=== PATIENT | female | born 1995 | race Caucasian/White ===

== ENCOUNTER → 2021-04-05 10:06 | Outpatient (BNVA) | payer OTHER, SELFPAY | PROVIDERS: Visit Provider Physician Assistant Medical | DX: S33.9XXA Sprain of unspecified parts of lumbar spine and pelvis, initial encounter (principal); S33.6XXA Sprain of sacroiliac joint, initial encounter; W01.0XXA Fall on same level from slipping, tripping and stumbling without subsequent striking against object, initial encounter | CPT/HCPCS: 99202 ==

== ENCOUNTER → 2021-04-09 13:14 | Outpatient (BNVA) | payer OTHER, SELFPAY | PROVIDERS: Visit Provider Physician Assistant Medical | DX: S33.9XXA Sprain of unspecified parts of lumbar spine and pelvis, initial encounter (principal); S33.6XXA Sprain of sacroiliac joint, initial encounter; X58.XXXA Exposure to other specified factors, initial encounter | CPT/HCPCS: 99213 ==

== ENCOUNTER 2021-11-08 06:52 | Emergency (ER) | payer OTHER, SELFPAY ==
--- NOTE | ~2021-11-08 | XR_ITS ---
EXAMINATION: LEFT ANKLE 2 VIEWS AND LEFT FOOT 3 VIEWS CLINICAL INFORMATION: Pain status post injury COMPARISON: None TECHNIQUE: As above nonweightbearing FINDINGS: Generalized mild soft tissue swelling about the ankle without evidence for any underlying fracture. Ankle mortise intact. Subtalar joint normal. No mid or forefoot abnormality. XR/XR ankle LT 2V IMPRESSION: No fracture.
--- NOTE | ~2021-11-08 | XR_ITS ---
EXAMINATION: LEFT ANKLE 2 VIEWS AND LEFT FOOT 3 VIEWS CLINICAL INFORMATION: Pain status post injury COMPARISON: None TECHNIQUE: As above nonweightbearing FINDINGS: Generalized mild soft tissue swelling about the ankle without evidence for any underlying fracture. Ankle mortise intact. Subtalar joint normal. No mid or forefoot abnormality. XR/XR foot LT 2V IMPRESSION: No fracture.
--- NOTE | 2021-11-08 07:05 | ED.FALL ---
HPI - Fall General Chief Complaint: Extremity Injury, Lower Stated Complaint: fell out of ambulance Time Seen by Provider: 11/08/21 07:01 Source: patient and EMS Mode of arrival: EMS Limitations: no limitations History of Present Illness HPI Narrative: 26-year-old female came in for evaluation of left foot/ankle injury. 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 Related Data Allergies Allergy/AdvReac Type Severity Reaction Status Date / Time erythromycin base Allergy Mild Hives Verified 11/08/21 07:03 Review of Systems Review of Systems: All other systems are reviewed and are negative Constitutional: Reports as per HPI and Reports no additional constitutional complaints Eyes: Reports as per HPI and Reports no additional eye complaints Reports system reviewed and no additional complaints, except as documented Cardiovascular: Reports as per HPI and Reports no additional cardiovascular complaints Respiratory: Reports as per HPI and Reports no additional respiratory complaints Gastrointestinal: Reports as per HPI and Reports no additional gastrointestinal complaints Genitourinary: Reports no additional female genitourinary complaints Musculoskeletal: Reports no additional musculoskeletal complaints Skin/Breast: Reports system reviewed and no additional complaints, except as docu Psychiatric: Reports no additional psychiatric complaints Endocrine: Reports no additional endocrine complaints Hematologic/Lymphatic: Reports no additional hematologic/lymphatic complaints Allergic/Immunologic: Reports no additional allergic/immunologic complaints Reports system reviewed and no additional complaints, except as documented and Reports Abnormal speech present [facility] Social History Social History Advance Directives: No Advance Directives Information Provided: No Physical Exam Vital Signs: Vital Signs: Last Vital Signs Pulse 97 11/08/21 07:26 Resp 20 11/08/21 07:26 BP 131/90 H 11/08/21 07:26 Pulse Ox 98 11/08/21 07:26 BMI result Body Mass Index 43.0 Vital signs have been reviewed as appeared to be correct. Blood pressure normal. Heart rate normal. Respiration rate normal. Temperature normal. Oxygen saturation normal. Appearance: Alert. Oriented X3. No acute distress. Head: Normal external exam. Normocephalic. Atraumatic. No [place] signs noted. No raccoon eyes noted Eyes: PERRLA. EOMI. Conjunctiva and sclera normal. Eyelids normal. ENT: TM's Normal. Pharynx normal. Uvula midline. Moist mucous membranes. No trismus noted. No drooling noted. No muffled voice noted. Neck: Normal inspection. Neck supple. FROM. No adenopathy. Thyroid Normal. No meningeal signs. No neck mass noted. CVS: Normal heart rate and rhythm. Heart sound normal. No murmurs noted. Pulses normal throughout. Respiratory: No respiratory distress. Painless inspiration. Breath sounds normal. No wheezes/rales/rhonchi noted. Chest nontender. No accessory muscle usage noted or decreased air movement noted. Abdomen: Soft and nontender. Bowel sounds normal in all 4 quadrants. No distention noted. No organomegaly noted. No visible injury noted. Back: No CVA tenderness. Full range of motion noted. Skin: Skin warm and dry. Normal skin color. Normal skin turgor. No rashes/lesions/lacerations noted. Extremities: Left ankle/foot exam: Mild tenderness and swelling over lateral malleolus, no deformity, normal cap refill in the left toes, intact PT/DP pulse. Neuro: Oriented X 3. Cranial nerve exam: II-XII are grossly intact No motor deficit. No sensory deficit. Reflexes normal. Course Course Course Narrative: Assessment and plan. Left ankle sprain with swelling. Ice, elevation, no weight-bearing, crutches. MDM - Fall Imaging Data Left ankle/foot x-ray.: Attestation: I personally reviewed and interpreted this imaging study as follows: Radiologist's impression: Generalized mild soft tissue swelling about the ankle without evidence for any underlying fracture. Ankle mortise intact. Subtalar joint normal. No mid or forefoot abnormality.? Discharge Plan Discharge Clinical Impression: Ankle sprain and strain Patient Disposition: Home, Self-Care Instructions: Ankle Sprain (DC) Referrals: Regan Mckeon MD [Physician] - 2 days Stand Alone Forms: Work/School Release
[2021-11-08 07:26] VITALS: BP 131/90; PULSE 97; RESP 20; O2SAT 98; BMI 43.0
== END 2021-11-08 09:29 | disposition home or self-care (01) ==
PROVIDERS: Emergency Provider Emergency Medicine; PCP Internal Medicine
DX: S93.402A Sprain of unspecified ligament of left ankle, initial encounter (principal); S96.912A Strain of unspecified muscle and tendon at ankle and foot level, left foot, initial encounter; W17.89XA Other fall from one level to another, initial encounter; Y93.F9 Activity, other caregiving; Y92.812 Truck as the place of occurrence of the external cause; Y99.0 Civilian activity done for income or pay
CPT/HCPCS: 73600; 73620; 99283; 99284